=== PATIENT | female | born 1970 | race Caucasian/White ===

== ENCOUNTER → 2018-06-27 | Outpatient (CLI) | payer OTHER ==
[~2018-06-27] MED LIST: ESTR2TAB PO; IBUPROFEN; IBUPROFEN 200MG PO; None per pt; OXYC-302 PO
[2018-06-27 16:54] LABS: BASOPHILS # (AUTO) 0.05 x10^3/uL (0-0.1); BASOPHILS % (AUTO) 1 % (0-1); EOSINOPHILS # (AUTO) 0.05 x10^3/uL (0-0.4); EOSINOPHILS % (AUTO) 1 % (1-7); LYMPHOCYTES # (AUTO) 1.76 x10^3/uL (1-3.4); LYMPHOCYTES % (AUTO) 20 % (22-44); MD NO; MEAN CORPUSCULAR HEMOGLOBIN 30.3 pg (27.0-34.8); MEAN CORPUSCULAR HGB CONC 32.6 g/dL (32.4-35.8); MEAN CORPUSCULAR VOLUME 93.1 fL (80-100); MONOCYTES # (AUTO) 0.36 x10^3/uL (0.2-0.8); MONOCYTES % (AUTO) 4 % (2-9); NEUTROPHILS # (AUTO) 6.55 x10^3/uL (1.8-6.8); NEUTROPHILS % (AUTO) 75 % (42-75); PLATELET COUNT 327 x10^3/uL (130-400); RED BLOOD COUNT 3.72 x10^6/uL (3.82-5.3); RED CELL DISTRIBUTION WIDTH 15.5 % (9.6-15.2)
[2018-06-27 17:01] LABS: ANION GAP 7 mmol/L (5-15); CALCIUM 8.7 mg/dL (8.5-10.1); CHLORIDE 110 mmol/L (98-107); CREATININE 0.69 mg/dL (0.55-1.02)
[2018-06-27 17:02] LABS: ALANINE AMINOTRANSFERASE 36 U/L (12-78); ALBUMIN 3.9 g/dL (3.4-5.0)
[2018-06-27 17:04] LABS: ALKALINE PHOSPHATASE 76 U/L (45-117); BILIRUBIN,TOTAL 0.4 mg/dL (0.2-1.0); TOTAL PROTEIN 7.4 g/dL (6.4-8.2)
== END | disposition home or self-care (01) ==
LOC: STAR 15:54
PROVIDERS: ATTEND Obstetrics & Gynecology
DX: Z01.818 Encounter for other preprocedural examination (principal); N92.0 Excessive and frequent menstruation with regular cycle
CPT/HCPCS: 36415; 80053; 85025; 93005

== ENCOUNTER 2018-07-02 12:24 | Inpatient (IN) | payer OTHER ==
[2018-06-27 16:08] VITALS: BP 119/84
[~2018-07-02] VITALS: Ht 175.3 cm; Wt 96.7 kg
[~2018-07-02 12:24] MED LIST changes: -ESTR2TAB PO; -IBUPROFEN; -IBUPROFEN 200MG PO; -OXYC-302 PO
[2018-07-02] MEDS ORDERED: LACTATED RINGERS 1,000 ML IV SCH (13:46)
[2018-07-02] MEDS ORDERED: GABAPENTIN 300 MG CAPSULE PO ONE (14:00)
[2018-07-02] MEDS ORDERED: ACETAMINOPHEN 500 MG TABLET PO ONE (14:00)
[2018-07-02] MEDS ORDERED: PHENAZOPYRIDINE 200 MG TABLET PO ONE (14:30)
[2018-07-02 14:31] LABS: HCG UR SG 1.026 (1.003-1.030)
[2018-07-02] MEDS ORDERED: MIDAZOLAM 1 MG/ML, 2ML ONE ×2 (15:09→17:12)
[2018-07-02] MEDS ORDERED: FENTANYL PF 250 MCG/5ML ONE (15:09)
[2018-07-02] MEDS ORDERED: LIDOCAINE-MPF 2% ,5ML ONE (15:18)
[2018-07-02] MEDS ORDERED: EPHEDRINE 50 MG/ML, 1ML IM PRN (16:00)
[2018-07-02] MEDS ORDERED: PROMETHAZINE 25 MG SUPP PR PRN (16:00)
[2018-07-02] MEDS ORDERED: OXYcodone 5 MG/5 ML ORAL.SOL UDC PO PRN (16:00)
[2018-07-02] MEDS ORDERED: MIDAZOLAM 1 MG/ML, 2ML IV PRN (16:00)
[2018-07-02] MEDS ORDERED: MEPERIDINE/PF 25MG/0.5ML IVPush PRN (16:00)
[2018-07-02] MEDS ORDERED: ALBUTEROL/IPRATROPIUM 2.5MG/0.5MG, 3 ML NPPB PRN (16:00)
[2018-07-02] MEDS ORDERED: SCOPOLAMINE PATCH, 1.5MG PATCH.TD72 TD PRN (16:00)
[2018-07-02] MEDS ORDERED: HALOPERIDOL 5 MG/ML IV PRN (16:00)
[2018-07-02] MEDS ORDERED: HYDROmorphone 1 MG/ML, 1ML IV PRN (16:00)
[2018-07-02] MEDS ORDERED: FENTANYL PF 100 MCG/2ML IV PRN (16:00)
[2018-07-02] MEDS ORDERED: KETOROLAC 30 MG/1 ML IM PRN (16:00)
[2018-07-02] MEDS ORDERED: ONDANSETRON 2MG/ML, 2ML IV PRN ×2 (16:00→19:00)
[2018-07-02] MEDS ORDERED: LABETALOL 5MG/ML, 20ML IV PRN (16:00)
[2018-07-02] MEDS ORDERED: GLYCOPYRROLATE 0.2MG/1ML, 5ML ONE (16:45)
[2018-07-02] MEDS ORDERED: NEOSTIGMINE 1 MG/ML, 10ML ONE (16:45)
[2018-07-02] MEDS ORDERED: ROCURONIUM 10MG/ML,5ML ONE (16:45)
[2018-07-02] MEDS ORDERED: PROPOFOL 10 MG/ML, 20ML ONE (16:45)
[2018-07-02] MEDS ORDERED: CEFAZOLIN 1,000 MG ONE (16:45)
[2018-07-02] MEDS ORDERED: DEXAMETHASONE 4 MG/ML, 1ML ONE (16:45)
[2018-07-02] MEDS ORDERED: ONDANSETRON 2MG/ML, 2ML ONE (16:45)
[2018-07-02] MEDS ORDERED: MORPHINE SULFATE 4 MG/ML, 1ML ONE (16:46)
[2018-07-02] MEDS ORDERED: FENTANYL PF 100 MCG/2ML ONE (17:13)
[2018-07-02] MEDS ORDERED: OXYcodone 5 MG/5 ML ORAL.SOL UDC ONE (17:43)
[2018-07-02] MEDS ORDERED: MEPERIDINE/PF 50 MG/ML ONE (17:52)
[2018-07-02 18:41] VITALS: BP 110/72
[2018-07-02] MEDS ORDERED: ACETAMINOPHEN 650 MG SUPP PR PRN (19:00)
[2018-07-02] MEDS ORDERED: ACETAMINOPHEN 325 MG TABLET PO PRN (19:00)
[2018-07-02] MEDS ORDERED: HYDROmorphone 2 MG/ML, 1ML IV PRN (19:00)
[2018-07-02] MEDS ORDERED: OXYcodone/APAP 5/325MG TABLET PO PRN (19:00)
[2018-07-02] MEDS ORDERED: METOCLOPRAMIDE 5 MG/ML, 2ML IVPush PRN (19:00)
[2018-07-02 20:37] VITALS: BP 104/71
[2018-07-02] MEDS ORDERED: ZOLPIDEM 5MG TABLET PO PRN (21:00)
[2018-07-02] MEDS: SODIUM CHLORIDE FLUSH 10ML SYR IVF SCH (21:00)
[2018-07-02] MEDS: IBUPROFEN 600 MG TABLET PO SCH (21:00)
[2018-07-02] MEDS: KETOROLAC 30 MG/1 ML IV PRN (21:03)
[2018-07-02] MEDS: ESTRADIOL 2 MG TABLET PO SCH (21:11)
[2018-07-02] MEDS: LACTATED RINGERS 1,000 ML IV SCH (21:12)
[2018-07-02 21:19] LABS: BASOPHILS % (AUTO) 0 % (0-1); EOSINOPHILS % (AUTO) 0 % (1-7); LYMPHOCYTES # (AUTO) 0.64 x10^3/uL (1-3.4); LYMPHOCYTES % (AUTO) 5 % (22-44); MD NO; MEAN CORPUSCULAR HEMOGLOBIN 31.2 pg (27.0-34.8); MEAN CORPUSCULAR HGB CONC 33.4 g/dL (32.4-35.8); MEAN CORPUSCULAR VOLUME 93.4 fL (80-100); MEAN PLATELET VOLUME 8.7 fL (7.4-10.4); MONOCYTES # (AUTO) 0.23 x10^3/uL (0.2-0.8); MONOCYTES % (AUTO) 2 % (2-9); NEUTROPHILS # (AUTO) 12.76 x10^3/uL (1.8-6.8); NEUTROPHILS % (AUTO) 94 % (42-75); PLATELET COUNT 263 x10^3/uL (130-400); RED BLOOD COUNT 3.38 x10^6/uL (3.82-5.3); RED CELL DISTRIBUTION WIDTH 15.5 % (9.6-15.2)
[2018-07-02 21:32] LABS: ANION GAP 9 mmol/L (5-15); CHLORIDE 110 mmol/L (98-107); CREATININE 0.58 mg/dL (0.55-1.02)
[2018-07-03] VITALS: BP 120/77
[2018-07-03] MEDS: LACTATED RINGERS 1,000 ML IV SCH ×2 (03:00→07:48)
[2018-07-03 04:00] VITALS: BP 106/71
[2018-07-03] MEDS: KETOROLAC 30 MG/1 ML IV PRN (04:40)
[2018-07-03] MEDS: IBUPROFEN 600 MG TABLET PO SCH (04:41)
[2018-07-03 06:33] VITALS: BP 96/65
[2018-07-03] MEDS: ESTRADIOL 2 MG TABLET PO SCH (07:43)
[2018-07-03] MEDS: SODIUM CHLORIDE FLUSH 10ML SYR IVF SCH (07:44)
[2018-07-03 10:14] VITALS: BP 101/73
[2018-07-03] MEDS ORDERED: OXYC-302 PO (10:41)
[2018-07-03] MEDS ORDERED: ESTR2TAB PO (10:41)
[2018-07-03] MEDS ORDERED: IBUPROFEN (10:42)
[2018-07-03] MEDS ORDERED: IBUPROFEN 200MG PO (10:44)
== END 2018-07-03 11:35 | disposition home or self-care (01) | DRG 743 ==
LOC: ORIP 13:38 → 4NOR 18:30 → DCLOUNGE 07-03 11:20
PROVIDERS: ADMIT Obstetrics & Gynecology; ATTEND Obstetrics & Gynecology
PROC: 0UT70ZZ Resection of Bilateral Fallopian Tubes, Open Approach (ICD-10-PCS; 2018-07-02)
PROC: 0UT90ZZ Resection of Uterus, Open Approach (ICD-10-PCS; 2018-07-02)
PROC: 0DBW0ZZ Excision of Peritoneum, Open Approach (ICD-10-PCS; 2018-07-02)
PROC: 0UT20ZZ Resection of Bilateral Ovaries, Open Approach (ICD-10-PCS; principal; 2018-07-02 15:30)
DX: D25.9 Leiomyoma of uterus, unspecified (principal); E03.9 Hypothyroidism, unspecified; N92.0 Excessive and frequent menstruation with regular cycle; N85.2 Hypertrophy of uterus; K66.8 Other specified disorders of peritoneum; N93.8 Other specified abnormal uterine and vaginal bleeding; Z14.8 Genetic carrier of other disease; Z80.3 Family history of malignant neoplasm of breast; Z80.0 Family history of malignant neoplasm of digestive organs; Z91.048 Other nonmedicinal substance allergy status; Z81.1 Family history of alcohol abuse and dependence; Z81.3 Family history of other psychoactive substance abuse and dependence; Z81.8 Family history of other mental and behavioral disorders; Z82.49 Family history of ischemic heart disease and other diseases of the circulatory system; Z98.51 Tubal ligation status
CPT/HCPCS: 36415; J3490; 80048; 81025; 85025; 86850; 86900; 88305; 88307; G0378; J0690; J1100; J1885; J2175; J2250; J2405; J2704; J2710; J3010; J7120